=== PATIENT | male | born 1935 | race Caucasian/White ===

== ENCOUNTER 2017-06-23 14:15 | Inpatient (IN) | payer OTHER ==
[2017-06-23] VITALS (22 sets, daily range): BP systolic 64–116; BP diastolic 42–94
[~2017-06-23] VITALS: Ht 167.6 cm; Wt 63.3 kg
[2017-06-23] MEDS ORDERED: RITO100T PO (14:24)
[2017-06-23] MEDS ORDERED: [UNRECOGNIZED DRUG - REMARK] (14:24)
[2017-06-23] MEDS ORDERED: IV NS 0.9% 1,000 ML BAG IV ONE ×3 (14:30→17:00)
--- NOTE | 2017-06-23 14:32 | NUR ---
PT BIBA FROM HOME FOR CHIEF COMPLAINT OF ALOC X UNK AMT OF TIME. PT CLINICAL PRESENTATION UPON ER ARRIVAL- PT ARRIVED WITH GCS 3, IN SEVERE RESPIRATORY DISTRESS, + SEVERE AMU, HYPOXIC WITH ON SAT 85 % RA, SKIN VERY HOT TO TOUCH & VERY PALE. & SHIVERING. PT ARRIVED WITH NO GAG RELFEX. P[place]BERTON CATHETER ALREADY IN PLACED WITH GROSS HEMATURIA. PT ARRIVED WITH PERSONAL BREAD STACKER . ONLY HX OF HIV. PT WAS INTUBATED IMMEDIATELY WITH RSI - ETOMIDATE 20 MG & 100 MG ENECTIN ETT 7.5 & 24 AT THE LIP WITH + COLOR CHANGED. BS PRESENT BILATERALLY.
[2017-06-23] MEDS ORDERED: ACETAMINOPHEN 650 MG/SUPP.RECT RC ONE ×2 (14:34→15:00)
[2017-06-23 14:39] LABS: EOSINOPHILS % (AUTO) 0.3 % (0.0-6.0); MEAN CORPUSCULAR HEMOGLOBIN 33 PG (26.0-33.0); MEAN CORPUSCULAR HGB CONC 33 g/dl (31.0-36.0); RDW COEFFICIENT OF VARIATION 12.7 (11.5-15.0)
[2017-06-23] MEDS ORDERED: IV NS 0.9% 250 ML IV ONE (14:39)
[2017-06-23] MEDS ORDERED: IOHEXOL-350 100 ML VIAL IV ONE (14:39)
[2017-06-23 14:41] LABS: BASOPHILS % (AUTO) 0.4 % (0.0-2.0); HEMATOCRIT 39 % (39-51); HEMOGLOBIN 12.9 g/dL (13.5-17.5); LYMPHOCYTES % (AUTO) 14.3 % (20.0-44.0); MEAN CORPUSCULAR VOLUME 98 fL (80-96); MONOCYTES # (AUTO) 0.1 /CMM (0.1-1.30); MONOCYTES % (AUTO) 1.4 % (2.0-12.0); NEUTROPHILS # (AUTO) 5.6 /CMM (1.8-8.9); NEUTROPHILS % (AUTO) 83.6 % (43.0-81.0); PLATELET COUNT (AUTO) 240 /CMM (150-450); RED BLOOD CELL COUNT(AUTO) 3.96 MIL/uL (4.5-6.0); WHITE BLOOD COUNT (AUTO) 6.7 K/uL (4.3-11.0)
[2017-06-23] MEDS ORDERED: RALT400T PO (14:41)
[2017-06-23] MEDS ORDERED: ETRA200T PO (14:41)
[2017-06-23] MEDS ORDERED: PRAV20TA4 PO (14:41)
[2017-06-23] MEDS ORDERED: FINA5TAB11 PO (14:41)
[2017-06-23] MEDS ORDERED: DARU600T4 PO (14:41)
[2017-06-23] MEDS ORDERED: TERA10CA4 PO (14:41)
--- NOTE | 2017-06-23 14:49 | NUR ---
PT TO CT ON MONITOR/RT
[2017-06-23 14:51] LABS: INR 1.01 (0.87-1.13); PROTHROMBIN TIME 10.5 SECS (9.5-12.7)
[2017-06-23 14:52] LABS: CALCIUM, SERUM 10.1 mg/dL (8.5-10.1); CARBON DIOXIDE 18 mmol/L (21-32); CHLORIDE 105 mmol/L (98-107); CREATININE 2.2 mg/dL (0.6-1.3); GLUCOSE 134 mg/dL (74-106); SODIUM SERUM 141 mmol/L (136-145); UREA NITROGEN, BLOOD 40 mg/dL (7-18)
[2017-06-23 14:56] LABS: TROPONIN I < 0.017 ng/mL (0.00-0.056)
[2017-06-23 14:58] LABS: ALANINE AMINOTRANSFERASE 13 U/L (12-78); ALBUMIN 2.8 g/dL (3.4-5.0); ALKALINE PHOSPHATASE 101 U/L (46-116); ASPARTATE AMINOTRANSFERASE 17 U/L (15-37); BILIRUBIN,DIRECT 0.4 mg/dL (0.0-0.2); BILIRUBIN,TOTAL 0.9 mg/dL (0.2-1.0); TOTAL PROTEIN, SERUM 6.8 g/dL (6.4-8.2)
[2017-06-23] MEDS ORDERED: PROPOFOL 100 ML IV PRN (15:00)
[2017-06-23 15:13] LABS: BAND % (MANUAL) 19 % (0.0-5.0); LYMPHOCYTES % (MANUAL) 27 % (16-48); MONOCYTES % (MANUAL) 5 % (0-11.0); NEUTROPHILS % (MANUAL) 49 (42-76)
--- NOTE | 2017-06-23 15:27 | NUR ---
RT PT RECEIVED IN ER WITH RESPIRATORY DISTRESS, PT IMMEDIATELY INTUBATED BY ER . PT INTUBATED WITH A 7.5 ETT SECURED AT 24CM AT THE LIP LINE. EQUAL BILATERAL BREATHE SOUNDS AND CHEST RISE. HIV CTS SPECIALIST CUFF PRESSURE NOTED. PT PLACED ON VENT WITH NOTED SETTINGS. VENT ALARMS ARE SET AND AUDIBLE WITH BVM BY BEDSIDE. VENT IS PLUGGED INTO RED OUTLET. WILL CONTINUE TO MONITOR. Addendum: 06/23/17 at 1529 by ALFIE TENA RT Amended: Links added.
[2017-06-23] MEDS ORDERED: PIPERACILLIN /TAZOBACTAM 3.375 G in IV D5W 50 ML IV ONE (15:30)
[2017-06-23] MEDS ORDERED: VANCOMYCIN 1 GM in IV D5W 250 ML IV ONE ×2 (15:30→17:00)
[2017-06-23 15:37] LABS: APPEARANCE,URINE Cloudy (CLEAR); BILIRUBIN,URINE SMALL (NEGATIVE); BLOOD, URINE Moderate Ery/uL (NEGATIVE); COLOR,URINE Red (YELLOW); KETONES,URINE Negative (NEGATIVE); LEUKOCYTE ESTERASE ,URINE Negative (NEGATIVE); NITRITE, URINE Negative (NEGATIVE); PH,URINE 8.5 (5.0-8.0); PROTEIN,URINE >=300 mg/dl (NEGATIVE); UGLUCOSE 100 MG/DL mg/dL (NEGATIVE); UROBILINOGEN,URINE 0.2 EU/dL (0.2)
[2017-06-23 15:39] LABS: BACTERIA,URINE Many /HPF (None Seen); RBC,URINE TOO NUMEROUS TO COUN /HPF (0-2); SQUAMOUS EPITHELIAL CELL,UR Few /HPF (None Seen)
[2017-06-23 16:04] LABS: ABG BASE EXCESS -6.1 mmol/L; ABG PCO2 26.4 mmHg (35.0-45.0); ABG PH 7.427 (7.350-7.450); ABG PO2 437.9 mmHg (75.0-100.0); AaDO2 248.7 mmHg; MetHb 0.6 % (0.0-1.5); O2Hb 98.4 % (94.0-97.0); PEEP,BG 5 cm H2O; SITE, ABG Right Brachial; VT, ABG 550 mL
[2017-06-23] MEDS ORDERED: PIPERACILLIN /TAZOBACTAM 3.375 G in IV D5W 50 ML IV SCH ×2 (16:30→18:00)
[2017-06-23] MEDS ORDERED: FENTANYL CITRAT IV 2,500 MCG in IV NS 0.9% 200 ML IV PRN (16:30)
[2017-06-23] MEDS ORDERED: PANTOPRAZOLE 40 MG VIAL IV SCH (16:30)
[2017-06-23] MEDS ORDERED: KEY,NONCONTROL,TO KEEP IN PYXI 1 EA MC ONE (16:38)
[2017-06-23] MEDS ORDERED: LORAZEPAM INJ 2 MG/ML VIAL IVP PRN (17:00)
[2017-06-23] MEDS ORDERED: NOREPINEPHRINE 8 MG in IV D5W 500 ML IV PRN (17:00)
[2017-06-23] MEDS ORDERED: ONDANSETRON HCL/PF 4 MG/2 ML VIAL IVP PRN (17:00)
[2017-06-23] MEDS ORDERED: MORPHINE SULFATE INJ 2 MG/ML DISP.SYRIN IV PRN (17:00)
[2017-06-23] MEDS ORDERED: FENTANYL CITRATE IV 1,250 MCG in IV NS 0.9% 250ML IV PRN (17:00)
[2017-06-23] MEDS ORDERED: KETOROLAC TROMETHAMINE INJ 30 MG/ML VIAL IV ONE (17:00)
[2017-06-23] MEDS ORDERED: ACETAMINOPHEN 325 MG TABLET PO PRN (17:00)
[2017-06-23] MEDS ORDERED: SUCCINYLCHOLINE CHLORIDE 20 MG/ML VIAL IV ONE (17:01)
[2017-06-23] MEDS ORDERED: ROCURONIUM BROMIDE 50 MG/5 ML IV ONE (17:01)
[2017-06-23] MEDS ORDERED: ETOMIDATE 2 MG/ML VIAL IV ONE (17:01)
--- NOTE | 2017-06-23 17:15 | NUR ---
PATIENT LOOKS UNCOMFORTABLE, BITING ON ET. PER DR. ENGLISH, DECREASE PROPOFOL TO 10MCG/HR AND START FENTANYL DRIP. FENTANYL DRIP STARTED AT 2MCG/HR VIA GREEN COFFEE BLENDER PUMP ON , 18.
--- NOTE | 2017-06-23 17:31 | NUR ---
REPORT GIVEN TO WALLY MONTENEGRO FOR DEJUAN.
--- NOTE | 2017-06-23 17:50 | NUR ---
PATIENTS BLOOD PRESSURE DROP TO 61/35. DR. TAMEKA SHARMA, ORDERED CENTRAL LINE INSERTION AND LEVOPHED PER PROTOCOL. CENTRAL LINE INSERTED ON RIGHT FEMORAL. LEVOPHED STARTED AT 10MCG/MIN.
[2017-06-23] MEDS ORDERED: FEE PK DOSING 1 MIN EA MC ONE (18:02)
[2017-06-23] MEDS ORDERED: KETOROLAC TROMETHAMINE INJ 30 MG/ML VIAL ONE (18:15)
--- NOTE | 2017-06-23 18:20 | NUR ---
PATIENT TRANSPORTED TO ICU ROOM 252 VIA ACLS PROTOCOL FOR ADMISSION. RNWALLY TO PROVIDE DEJUAN.
--- NOTE | 2017-06-23 18:20 | NUR ---
ICU/RN: PT RECEIVED FROM ER VIA GURNEY ON FENTANYL 4MCG/HR, LEVOPHED AND DIPRIVAN INFUSING THROUGH R FEMORAL CENTRAL LINE; FLUSHED AND ASSESSED FOR PATENCY. INTUBATED WITH ETT 7.5 @24CM LIP LINE, ON ORDERED VENT SETTINGS, TOLERATING WELL. SINUS TACHYCARDIA 115 ON MONITOR, TEMP 101.9F. BLANCHING SACRAL REDNESS NOTED, PHOTOGRAPH TAKEN PER PROTOCOL. OLD FC DC'D, WITH 100CC OF HEMATURIA OUTPUT NOTED, BLOOD CLOTS NOTED UPON REMOVAL OF FC. NEW FC INSERTED, PT TOLERATED WELL. SAFETY MEASURES IN PLACE. WILL CONT TO MONITOR PT
[2017-06-23 18:47] LABS: IRON, SERUM 66 ug/dl (50-175); TOTAL IRON BINDING CAPACITY 177 ug/dl (250-450)
--- NOTE | 2017-06-23 19:15 | NUR ---
ICU/RN: PT WITH LABILE SBP IN 80-90'S, LEVOPHED TITRATED PER PROTOCOL. LARGE AMOUNT OF SOFT YELLOW STOOL NOTED, WOUND CARE RENDERED. CANCER RESEARCHER UPDATED ON PT STATUS. CARE ENDORSED TO PM RN FOR DEJUAN.
[2017-06-23 19:25] LABS: LYMPHOCYTES # (AUTO) 0.2 /CMM (0.8-4.8); MEAN CORPUSCULAR VOLUME 97 fL (80-96); MONOCYTES # (AUTO) 0.1 /CMM (0.1-1.30); RDW COEFFICIENT OF VARIATION 12.8 (11.5-15.0)
[2017-06-23 19:28] LABS: BASOPHILS % (AUTO) 0.1 % (0.0-2.0); EOSINOPHILS % (AUTO) 0.2 % (0.0-6.0); HEMATOCRIT 28 % (39-51); HEMOGLOBIN 9.7 g/dL (13.5-17.5); LYMPHOCYTES % (AUTO) 3.1 % (20.0-44.0); MEAN CORPUSCULAR HEMOGLOBIN 33 PG (26.0-33.0); MEAN CORPUSCULAR HGB CONC 34 g/dl (31.0-36.0); NEUTROPHILS # (AUTO) 5.8 /CMM (1.8-8.9); NEUTROPHILS % (AUTO) 95.6 % (43.0-81.0); PLATELET COUNT (AUTO) 125 /CMM (150-450); RED BLOOD CELL COUNT(AUTO) 2.89 MIL/uL (4.5-6.0); WHITE BLOOD COUNT (AUTO) 6.1 K/uL (4.3-11.0)
[2017-06-23 19:57] LABS: BAND % (MANUAL) 39 % (0.0-5.0); LYMPHOCYTES % (MANUAL) 8 % (16-48); METAMYELOCYTES % 1 % (0-0); MONOCYTES % (MANUAL) 12 % (0-11.0); MYELOCYTES % 1 % (0-0); NEUTROPHILS % (MANUAL) 39 (42-76)
[2017-06-23] MEDS: IV D5/ 0.9% NACL 1,000 ML IV PRN (19:59)
[2017-06-23] MEDS ORDERED: NOREPINEPHRINE 4 MG/4 ML AMPUL IV ONE (22:25)
[2017-06-23] MEDS ORDERED: PHENYLEPHRINE 10 MG/ML VIAL ONE (22:49)
[2017-06-23] MEDS: PROPOFOL 100 ML IV PRN (22:58)
[2017-06-23] MEDS ORDERED: PHENYLEPHRINE 40 MG in IV D5W 250 ML IV PRN (23:00)
[2017-06-24] VITALS (74 sets, daily range): BP systolic 57–131; BP diastolic 24–70
--- NOTE | 2017-06-24 | NUR ---
REHABILITATION SUPERVISOR - REC'D PT. SEDATED ON DIPRIVAN GTT. AT 30 MCG/KG/MIN. PT. IS ALSO ON LEVOPHED GTT. AT 35 MCG/KG/MIN. ALL GTTS WERE TITRATED. FENTANYL GTT. WAS DC'D. PT'S CAREGIVER/GEETA/EBONY HERE TO GIVE POLST/DNR PAPER - WORK. PLACED IN CHART. PT.BUCKS THE VENT OCCASIONALLY. LEFT NARE 16 GERMAN NGT PLACED W/O INCIDENCE. PUT TO LIS W/ALMOST 100 CC OF GASTRIC FLUIDS OUT. PEMBERTON CATH TO GRAVITY HAS UOP/HEMATURIA W/CLOTS/DARK RED. BILAT. SOFT WRIST RESTRAINTS INTACT. + FEVER AT 101.0, LOWER THAN ER ADMIT (103.0). COOLING MEASURES ARE IN PLACE. HEART MONITOR SHOWS SR/LBBB/CONT. & SBP'S ARE HYPOTENSIVE. AT 23:00, ORDERS FROM DR.TIM KING TO START 2ND PRESSOR. NEOSYNEPHRINE STARTED AT 80 MCG/MIN. & IS NOW UP TO 160 MCG/MIN. ECHO WAS DONE AT START OF SHIFT. PT.HAS EJECTION FX OF 60-65%. CONT.POC.
[2017-06-24] MEDS: PIPERACILLIN /TAZOBACTAM 2.25 G in IV D5W 50 ML IV SCH ×3 (00:08→12:15)
[2017-06-24] MEDS ORDERED: NOREPINEPHRINE 4 MG/4 ML AMPUL IV ONE ×2 (01:49→05:00)
[2017-06-24] MEDS ORDERED: PHENYLEPHRINE 10 MG/ML VIAL ONE ×3 (01:50→06:44)
[2017-06-24] MEDS: IV D5/ 0.9% NACL 1,000 ML IV PRN ×2 (04:01→12:36)
[2017-06-24 04:57] LABS: INR 1.19 (0.87-1.13); PROTHROMBIN TIME 12.9 SECS (9.5-12.7)
[2017-06-24 04:58] LABS: EOSINOPHILS % (AUTO) 0.1 % (0.0-6.0); HEMATOCRIT 28 % (39-51); HEMOGLOBIN 9.3 g/dL (13.5-17.5); LYMPHOCYTES # (AUTO) 0.2 /CMM (0.8-4.8); LYMPHOCYTES % (AUTO) 0.8 % (20.0-44.0); MEAN CORPUSCULAR HEMOGLOBIN 33 PG (26.0-33.0); MEAN CORPUSCULAR HGB CONC 33 g/dl (31.0-36.0); MEAN CORPUSCULAR VOLUME 98 fL (80-96); MONOCYTES # (AUTO) 0.1 /CMM (0.1-1.30); MONOCYTES % (AUTO) 0.2 % (2.0-12.0); NEUTROPHILS # (AUTO) 28.9 /CMM (1.8-8.9); NEUTROPHILS % (AUTO) 98.9 % (43.0-81.0); PLATELET COUNT (AUTO) 131 /CMM (150-450); RDW COEFFICIENT OF VARIATION 14.1 (11.5-15.0); RED BLOOD CELL COUNT(AUTO) 2.85 MIL/uL (4.5-6.0); WHITE BLOOD COUNT (AUTO) 29.2 K/uL (4.3-11.0)
[2017-06-24 05:17] LABS: ALANINE AMINOTRANSFERASE 16 U/L (12-78); ALBUMIN 1.6 g/dL (3.4-5.0); ALKALINE PHOSPHATASE 47 U/L (46-116); ASPARTATE AMINOTRANSFERASE 33 U/L (15-37); BILIRUBIN,TOTAL 1.3 mg/dL (0.2-1.0); CALCIUM, SERUM 7.3 mg/dL (8.5-10.1); CARBON DIOXIDE 14 mmol/L (21-32); CHLORIDE 107 mmol/L (98-107); CREATININE 2.5 mg/dL (0.6-1.3); GLUCOSE 292 mg/dL (74-106); PHOSPHORUS 1.8 mg/dL (2.5-4.9); POTASSIUM 3.5 mmol/L (3.5-5.1); SODIUM SERUM 137 mmol/L (136-145); TOTAL PROTEIN, SERUM 4.5 g/dL (6.4-8.2); UREA NITROGEN, BLOOD 38 mg/dL (7-18)
[2017-06-24 05:27] LABS: CREATINE KINASE MB 3.5 ng/mL (0-3.6)
[2017-06-24 05:46] LABS: MAGNESIUM 1.1 mg/dL (1.8-2.4)
[2017-06-24 07:21] LABS: BAND % (MANUAL) 33 % (0.0-5.0); LYMPHOCYTES % (MANUAL) 2 % (16-48); METAMYELOCYTES % 5 % (0-0); MONOCYTES % (MANUAL) 1 % (0-11.0); MYELOCYTES % 1 % (0-0); NEUTROPHILS % (MANUAL) 58 (42-76)
[2017-06-24] MEDS ORDERED: PANTOPRAZOLE 40 MG TABLET.DR PO SCH (07:30)
[2017-06-24 07:42] LABS: ABG BASE EXCESS -13.3 mmol/L; ABG OXYGEN SATURATION 96.9 % (92.0-98.5); ABG PCO2 23.2 mmHg (35.0-45.0); ABG PH 7.307 (7.350-7.450); AaDO2 226.4 mmHg; COHb 0.3 % (0.5-1.5); MetHb 0.6 % (0.0-1.5); PEEP,BG 0 cm H2O; SITE, ABG Right Radial; VENT MODE, BG AC 18 550 50% +0; VT, ABG 550 mL
[2017-06-24] MEDS ORDERED: DOPamine 800 MG in IV D5W 250 ML IV PRN (08:00)
[2017-06-24] MEDS ORDERED: POTASSIUM PHOSPHATE MM 15 MMOL in IV D5W 250 ML IV SCH (08:30)
[2017-06-24] MEDS ORDERED: Magnesium 1GM/D5W 100ML PREMIX 100 ML IV SCH ×2 (08:30→13:18)
[2017-06-24] MEDS: NOREPINEPHRINE 16 MG in IV D5W 500 ML IV PRN ×2 (08:53→14:48)
[2017-06-24] MEDS ORDERED: PANTOPRAZOLE 40 MG VIAL IV SCH (09:00)
[2017-06-24] MEDS: PHENYLEPHRINE 80 MG in IV NS 0.9% 250 ML IV PRN ×3 (09:00→16:34)
[2017-06-24] MEDS ORDERED: LEVOFLOXACIN 500 MG /D5W 100ML 500 MG in PREMIX 1 EA IV ONE (09:00)
[2017-06-24] MEDS: Magnesium 1GM/D5W 100ML PREMIX 100 ML IV SCH ×4 (09:26→12:26)
--- NOTE | 2017-06-24 09:32 | NUR ---
NO CONSENT YET FOR LUMBAR PUNCTURE. PATIENT ON MULTIPLE PRESSORS AND UNABLE TO COME DOWN PER RN. RN WILL CALL BACK WITH STATUS UPDATE.
--- NOTE | 2017-06-24 09:53 | NUR ---
RADIOLOGIST RECOMMENDS TO INSERT NG TUBE 12CM, ORDERS FUFILLED, NOTIFIED RT ABOUT PULLING BACK ETT 1-2 CM RECOMMENDED BY RADIOLOGIST.
[2017-06-24] MEDS: PROPOFOL 100 ML IV PRN (10:04)
--- NOTE | 2017-06-24 10:15 | NUR ---
DR. FLOREZ REQUESTED TO CONTACT DR. DENISE GALLAGHER UROLOGY CONSULT. CHARGE NURSE CALLED FOR CONSULT BUT THAT MD DOES NOT CONSULT WITH [facility].
[2017-06-24] MEDS: POTASSIUM PHOSPHATE MM 7.5 MMOL in IV D5W 100 ML IV SCH ×2 (10:24→13:15)
--- NOTE | 2017-06-24 10:53 | NUR ---
RT NOTE PT ETT REPOSITIONED PER MD ORDER. PT ETT NOW AT 22CM @ LIP. CUFF INFLATED. NO DISTRESS NOTED. RN NOTIFIED. Addendum: 06/24/17 at 1055 by TERRA WILLIS RT Amended: Links added.
--- NOTE | 2017-06-24 12:06 | NUR ---
Social service consult requested by Dr. Meyer for HIV. Pt. is a 81 year old male who was admitted to [facility] for abdominal pain. SW is unable to access pt. at this time due to pt. being intubated. SW to follow up once pt. is extubated.
--- NOTE | 2017-06-24 12:51 | NUR ---
ETT TUBE IN SATISFACTORY PLACE ACCORDING TO 2ND CHEST XRAY, NG TUBE ADVANCED 10CM, PER RECOMMENDATION BY RADIOLOGY REPORT.
--- NOTE | 2017-06-24 13:49 | NUR ---
SPOKE WITH THE PT'S CAREGIVER/FRIEND EBONY SANTANA, UPDATED ABOUT THE PT'S CONDITION. OF NOW THE WISHES ARE TO EXTUBATE THE PATIENT, HE HAS A DNR POLST WHICH WE HAVE A COPY OF NOW (DID NOT HAVE COPY IN E.R.) HE IS AWARE THAT THE EXTUBATION MAY BE TERMINAL, BUT HE STATES THAT THIS WAS THE WISHES OF THE PATIENT DISCUSSED PRIOR TO HOSPITALIZATION. EXPLAINED TO HIM THE PRESSORS AND WHETHER HE WANTS COMFORT MEASURES OR JUST DNR/DNI WITH MEDICATION SUPPORT SUCH PRESSORS, AND ATBX. AT THIS TIME HE WISHES FOR THE MEDCIATIONS BUT NO REINTUBATION AND NO CHEST COMPRESSIONS. DISCUSSED WITH DR. FLOREZ WHO ACKNOWLEDGES, NO COMFORT MEASURES BUT PLAN FOR EXTUBATION TODAY WITH NO REINTUBATION.
--- NOTE | 2017-06-24 13:49 | NUR ---
DR. MANCUSO ORDERS BLOOD CULTURES 1 SET PERIPHERAL STICK ONE SET FROM THE CENTRAL LINE. ORDERS PLACED. SHE ALSO ADJUSTS ATBX.
[2017-06-24] MEDS ORDERED: MEROPENEM 0.5 G in IV NS 0.9% 100 ML IV SCH (14:00)
[2017-06-24] MEDS: POTASSIUM CL. PREMIX PERIPHER. 50 ML IV SCH ×2 (14:02→15:18)
--- NOTE | 2017-06-24 14:26 | NUR ---
PT ST HIGH 124 CONSISTENTLY SINCE DOPAMINE STARTED. DR. FLOREZ NOTIFIED, SHE ORDERS TO REPLACE WITH VASOPRESSIN SHOCK DOSE.
[2017-06-24] MEDS ORDERED: VASOPRESSIN INJ 50 UNIT in IV D5W 497.5 ML IV PRN (14:30)
[2017-06-24] MEDS ORDERED: VANCOMYCIN 0.75 GM in IV D5W 250 ML IV SCH (16:00)
[2017-06-24] MEDS ORDERED: DRONEDARONE HYDROCHLORIDE 400 MG TABLET PO SCH (17:00)
--- NOTE | 2017-06-24 17:17 | NUR ---
EBONY SANTANA AT BEDSIDE [facility] DISCUSSED THE CASE WITH HIM. THE PT'S WISHES WERE NOT TO BE ON MECHANICAL VENTILATOR AND HE WISHES FOR THE PT TO BE EXTUBATED, BUT CONTINUE WITH IV PRESSORS. CASE DISCUSSED WITH DR. FLOREZ THIS MORNING, SHE AGREED AND SAID TO EXTUBATE THE PATIENT BUT NOT COMFORT MEASURES (MORPHINE DRIP). CALLED DR. FLOREZ TO CONFIRM ORDER TO EXTUBATE AND MAINTAIN DNR/DNI, KEEP PRESSORS ON BOARD. IF THE PT GOES INTO TOO MUCH RESPIRATORY DISTRESS, EBONY SANTANA WILL BE THERE TO DECIDE WHETHER COMFORT MEASURES OR NOT.
--- NOTE | 2017-06-24 17:38 | NUR ---
DIPRIVAN TITRATED OFF, AT THIS TIME HE IS TOLERATING THE VENT. ALERT TO VERBAL, TRACKS WITH EYES, FOLLOWS DIRECTIONS TO SQUEEZE MY HANDS. STILL SLEEPY BUT AROUSABLE.
--- NOTE | 2017-06-24 18:29 | NUR ---
AWAITING FOR EBONY SANTANA TO COME BACK, AND ORDERS ARE TO EXTUBATE. IF THE PT GOES INTO TOO MUCH DISTRESS, EBONY SANTANA WILL MAKE THE DECISION WHETHER TO GO TO COMFORT MEASURES OR NOT. NOTIFIED RT ON DAY SHIFT TO PASS ON IN REPORT ABOUT EXTUBATION ORDERS. CHARGE NURSE AWARE.
--- NOTE | 2017-06-24 19:36 | NUR ---
NET DEVELOPER. INITIAL ASSESSMENT. RECEIVED THE PT REST ON THE BED. ORALLY INTUBATED. PT AWAKE. OPEN EYES. ETT 7.5CM. LIP 22CM,AC 18,TV 550,FIO2 50%. SAT 98%. HOUSE VISITOR SHOWING S TACH. LT NARE NGT INTACT. CLAMPED. NPO. IV RT FEMORAL TRIPLE LUMEN. IVF D5NS 125ML/H,LEVO 40MCG/MIN,LOWELL 300,CG/MIN. FC PATENT. HEMATURIA NOTED.HOB ELEVATED. ROSA SOFT WRIST RESTRAINT CHECKED AND RELEASED, NO INJURY OR REDNESS NOTED. TURN AND REPOSITION Q2H. WILL CONTINUE TO MONITOR VITALS.
[2017-06-24] MEDS ORDERED: DC PROPOFOL WHEN EXTUBATED XX PRN (20:00)
--- NOTE | 2017-06-24 20:30 | NUR ---
STREET OPENINGS INSPECTOR. PT DPOA AT BED SIDE MR EBONY SANTANA. WISH TERMINALLY EXTUBATION 30MINTS BEFORE EXTUBATION MORPHINE 2MG IVP GIVEN.
--- NOTE | 2017-06-24 21:00 | NUR ---
MANUFACTURING ELECTRICIAN. PT TERMINALLY EXTUBATED AT 2100. OXYGEN 3L VIA NASAL CANNULA. SAT 94%. HEART RATE 104. BLOOD PRESSURE 85/45. WILL CONTINUE TO MONITOR VITALS.
--- NOTE | 2017-06-24 21:08 | NUR ---
PT EXTUBATED ORDERED, NO ADVERSE REACTION, PLACED ON NC AT 5 LPM. PT RESTING COMFORTABLY AT THIS TIME. Addendum: 06/24/17 at 2110 by DEONNA ZAMORA RT Amended: Links added.
--- NOTE | 2017-06-24 21:51 | NUR ---
[facility] CALLED [facility] NEW ORDER RECEIVED. MORPHINE 4MG Q30MIN AND PRN, ATIVAN 2MG Q1H AND PRN
[2017-06-24] MEDS ORDERED: LORAZEPAM INJ 2 MG/ML VIAL IV PRN (22:00)
[2017-06-24] MEDS ORDERED: MORPHINE SULFATE INJ 4 MG/ML DISP.SYRIN IV PRN (22:00)
[2017-06-25] VITALS: BP_SYST 65; BP_SYST 66; BP_DIAS 39; BP_DIAS 40
[2017-06-25] MEDS ORDERED: MORPHINE SULFATE INJ 4 MG/ML DISP.SYRIN ONE (00:09)
[2017-06-25] MEDS ORDERED: LORAZEPAM INJ 2 MG/ML VIAL ONE (00:09)
--- NOTE | 2017-06-25 00:25 | NUR ---
RECEIVED PT COMING FROM ICU, COMFORT CARE MEASURES ONLY, PT IS NON VERBAL NON RESPONSIVE TO STIMULUS, WILL CONTINUE TO MONITOR AND PROVIDE COMFORT DESIRED BY FAMILY AND ORDER BY DOCTOR.
--- NOTE | 2017-06-25 00:45 | NUR ---
SHANK FAKER. TRANSFER THE PT TO ROOM 319. REPORT GIVEN TO REI. PT IS COMFORT MEASURE. PT MORTUARY NUMBER GIVEN TO REI RN. PAGED [facility] WAITING FOR CALL BACK.BLOOD PRESSURE 66/35, RESPIRATORY RATE 8, HEART RATE 100.
--- NOTE | 2017-06-25 00:53 | NUR ---
CORK INSULATORRN. GILBERT CALLED BACK. ORDER IS MORPHINE 4MG Q30MIN, PRN. KEEP RESPIRATORY RATE <20
[2017-06-25] MEDS ORDERED: MORPHINE SULFATE INJ 4 MG/ML DISP.SYRIN IV PRN (01:00)
[2017-06-25] MEDS ORDERED: VANCOMYCIN 0.75 GM in IV D5W 250 ML IV SCH (04:00)
--- NOTE | 2017-06-25 04:20 | NUR ---
DURING FREQUENT ROUNDING, PT NOTED TO NOT HAVE CHEST RAISE, WHEN ASSESSING PT NO PULSE WAS FOUND, MD AND CHARGE NURSE NOTIFIED, TIME OF WAS DECLARED TO BE 4:10, WILL NOTIFY FAMILY AND MORTUARY FOR ARRANGEMENTS.
--- NOTE | 2017-06-25 04:30 | NUR ---
PT'S POLICE STENOGRAPHER, WAS NOTIFIED OF PT'S , PT STATES BEING POWER OF STERILIZATION TECH AND PT HAS NO OTHER FAMILY, HE WILL BRING LEGAL DOCUMENT SHORTLY TO THE HOSPITAL SHOWING THAT HE CAN MAKE LEGAL DECISIONS.
[2017-06-25 08:11] LABS: *BASOS 0 % (.); *COMMENTS Note: (.); *EOS 0 % (.); *HCT 29.5 % (37.5-51.0); *HGB 9.5 g/dL (12.6-17.7); *LYMPHOCYTES 4 % (.); *LYMPHS, ABSOLUTE 0.2 x10E3/uL (0.7-3.1); *MCH 32.8 pg (26.6-33.0); *MCHC 32.2 g/dL (31.5-35.7); *MCV 102 fL (79-97); *MONOCYTES 0 % (.); *NEUTROPHILS 76 % (.); *NEUTROPHILS, ABSOLUTE 5.3 x10E3/uL (1.4-7.0); *PLT 117 x10E3/uL (150-379); *RDW 13.9 % (12.3-15.4)
[2017-06-26] MEDS ORDERED: LEVOFLOXACIN 250 MG /D5W 50 ML 250 MG in PREMIX 1 EA IV SCH (09:00)
== END 2017-06-25 04:10 | disposition expired | DRG 974 ==
LOC: ER 14:20 → ICU 17:39 → MED 06-25 00:15
PROVIDERS: ADMIT Internal Medicine; ATTEND Internal Medicine
PROC: 5A1945Z Respiratory Ventilation, 24-96 Consecutive Hours (ICD-10-PCS; principal; 2017-06-23)
PROC: 0BH17EZ Insertion of Endotracheal Airway into Trachea, Via Natural or Artificial Opening (ICD-10-PCS; 2017-06-23)
DX: A41.9 Sepsis, unspecified organism (principal); B20 Human immunodeficiency virus [HIV] disease; J96.01 Acute respiratory failure with hypoxia; N17.0 Acute kidney failure with tubular necrosis; R65.21 Severe sepsis with septic shock; E43 Unspecified severe protein-calorie malnutrition; G93.41 Metabolic encephalopathy; E87.2 Acidosis; N13.30 Unspecified hydronephrosis; J98.11 Atelectasis; N39.0 Urinary tract infection, site not specified; Z51.5 Encounter for palliative care; Z66 Do not resuscitate; D63.8 Anemia in other chronic diseases classified elsewhere; E83.42 Hypomagnesemia; I71.2 Thoracic aortic aneurysm, without rupture; K57.30 Diverticulosis of large intestine without perforation or abscess without bleeding; N21.0 Calculus in bladder; N40.0 Benign prostatic hyperplasia without lower urinary tract symptoms; R31.0 Gross hematuria; Z79.899 Other long term (current) drug therapy; B96.89 Other specified bacterial agents as the cause of diseases classified elsewhere; E87.8 Other disorders of electrolyte and fluid balance, not elsewhere classified; I12.9 Hypertensive chronic kidney disease with stage 1 through stage 4 chronic kidney disease, or unspecified chronic kidney disease; N18.9 Chronic kidney disease, unspecified
CPT/HCPCS: 31720; 36415; 36600; 70450-TC; 71010-TC; 80048-TC; 80053-TC; 80076-TC; 81000-TC; 82550-TC; 82553-TC; 82803-TC; 82962-TC; 83540-TC; 83605-TC; 83735-TC; 84100-TC; 84484-TC; 85025-TC; 85610-TC; 85730-TC; 86360; 87040-TC; 87081-TC; 87086-TC; 87186-TC; 93307-TC; 94003-TC; A4216; A4606; C1751; J0330; J1265; J1885; J1956; J2060; J2185; J2270; J2370; J2543; J3010; J3370; J3475; J3480; J3490; J7030; J7042; J7050; J7060; Q9967; Z7610